=== PATIENT | male | born 1950 | race Caucasian/White ===

== ENCOUNTER 2017-01-22 20:53 | Emergency (ER) | payer MEDICARE ==
[~2017-01-22] VITALS: Ht 168.9 cm; Wt 83.3 kg
[~2017-01-22 20:53] MED LIST: ALLO100T PO; AMLO10TA4 PO; BACL10TA PO; CHOL20002 PO; LISI40TA4 PO; OXYC10TA51 PO; PREG200C PO; SIMV20TA6 PO; TIZA4TAB4 PO; TRAZ-170 PO
[2017-01-22 20:58] VITALS: Ht 168.9 cm; Wt 83.3 kg
--- OUTSIDE RECORDS SUMMARY | 2017-01-22 20:58 | XMS REPORT | Continuity of Care Document ---
Author Author [facility] Organization [facility] Address Unknown Phone Unavailable Support Name Relationship Address Phone ARMAND FORMAN DO Caregiver [address] [place] [address] Unavailable MAYRA MEJIA DO Caregiver [address] [place] [address] Unavailable MOHSEN MEI Next Of Kin [address] [phone] Insurance Providers Guarantor Vi Mejia Address [address] [place] [address] Email DENIED/11/24/16 Payer Medicare Policy Number [id number] Subscriber's Name Vi Mejia Relationship 18 Self Payer [facility] Policy Number [id number] Subscriber's Name MejiaVi Relationship 18 Self Group Number PLANF Chief Complaint and Reason for Visit Chief Complaint Abdominal Pain Reason for Visit Renal insufficiency Dehydration Problems Past Problems Medical Problem Onset Date Dehydration Unknown Renal insufficiency Unknown Medications Current Home Medications Medication Dose Units Route Directions Days Qty Instructions Start Date Allopurinol 100 Mg Tablet 300 Mg Oral Daily 01/13/16 Amlodipine Besylate (Norvasc) 10 Mg Tablet 10 Mg Oral Daily 01/12 Baclofen 10 Mg Tablet 10 Mg Oral Three Times A Day 01/13/16 Cholecalciferol (Vitamin D3) (Vitamin D) Unknown Strength Capsule 1 Cap Oral Daily 12/11/16 Lisinopril 40 Mg Tablet 40 Mg Oral Daily 01/13/16 Oxycodone Hcl 10 Mg Tablet 10 Mg Oral Four Times Daily as needed for Pain 12/11/16 Pregabalin (Lyrica) 200 Mg Capsule 200 Mg Oral Three Times A Day 12/11/16 Simvastatin 20 Mg Tablet 20 Mg Oral Daily 01/13/16 Tizanidine Hcl 4 Mg Tablet 4 Mg Oral Three Times A Day 12/11/16 Trazodone Hcl 50 Mg Tablet 50 Mg Oral Bedtime 12/11/16 Social History Social History Problem Response Recorded Date/Time Onset Date Status Hx Alcohol Use No 12/11/2016 4:49pm Not Applicable Not Applicable Has the pt used tobacco in the last 12 months No 11/24/2016 9:28am Not Applicable Not Applicable Query Response Start Date Stop Date Smoking Status Former smoker Hospital Discharge Instructions No hospital discharge instructions. Plan of Care Discharge Date 12/11/16 5:38pm Disposition 01 DISCHARGED HOME, SELF-CARE Condition at Discharge Improved Instructions/Education Provided Dehydration (ED) Prescriptions See Medication Section Referrals ARMAND FORMAN DO Order Date: 2 Days Address: [address] [address] Note: Care Plan and Goals Physician Care Plan Problem: Renal Insufficiency, Dehydration Goal: Follow up with primary care provider Instructions: Take medications and follow care plan as discussed/written Functional Status No functional status results. Allergies, Adverse Reactions, Alerts No known allergies. Immunizations Immunization Event Date Type Not Given Reason Dose Number Lot Number Rn Clinical Review VIS Given IGIV 10/07/16 Administered 1 IGIV 11/24/16 Administered 2 Query Response on File Recorded Date/Time Hx Influenza Vaccination Y JUL 2015 11/24/16 9:28am Hx Pneumococcal Vaccination Y jul 2015 11/24/16 9:28am Hx Influenza Vaccination Y JUL 2015 11/24/16 9:28am Influenza Vaccine Hx NOT RECIEVED 12/11/16 4:49pm Vital Signs Acute Vital Signs Vital Response Date/Time Temperature (Fahrenheit) 97.5 deg F (96.8 - 99.1) 12/11/2016 5:38pm Temperature (Calculated Celsius) 36.63733 degrees C (36.0 - 37.3) 12/11/2016 5:38pm Pulse Rate (adult) 56 bpm (60 - 100) 12/11/2016 5:38pm Respiratory Rate 16 breaths/min (10 - 20) 12/11/2016 5:38pm O2 Sat by Pulse Oximetry 97 % (90 - 100) 12/11/2016 5:38pm Oxygen Delivery Method Room Air 11/24/2016 9:31am Blood Pressure 124/58 mm Hg 12/11/2016 5:38pm Blood Pressure Source Automatic Cuff 11/24/2016 9:31am Blood Pressure / Blood Pressure Source Automatic Cuff 11/24/2016 9:31am Height (Feet) 5 feet 12/11/2016 2:30pm Height (Inches) 7.00 inches 12/11/2016 2:30pm Weight (Kilograms) 85.900 kg 12/11/2016 2:30pm Body Mass Index (BMI) 29.0 12/11/2016 2:30pm Results Laboratory Results Test Name Result Units Flags Reference Collection Date/Time Result Date/ Time Comments White Blood Count 7.4 T/MM3 4.5-11.0 12/11/2016 3:35pm 12/11/2016 4: 03pm Red Blood Count 4.82 M/MM3 4.50-5.90 12/11/2016 3:35pm 12/11/2016 4: 03pm Hemoglobin 13.2 GM/DL L 13.5-17.5 12/11/2016 3:35pm 12/11/2016 4:03pm Hematocrit 39.8 % L 41-53 12/11/2016 3:35pm 12/11/2016 4:03pm Mean Corpuscular Volume 82.6 UM3 80-100 12/11/2016 3:35pm 12/11/2016 4: 03pm Mean Corpuscular Hemoglobin 27.4 UUG 26-34 12/11/2016 3:35pm 2016 4:03pm Mean Corpuscular Hemoglobin Concent 33.2 GM/DL 31-37 12/11/2016 3:35pm 12/11/2016 4:03pm RDW Standard Deviation 38.9 FL 36.9-50.2 12/11/2016 3:35pm 12/11/2016 4 :03pm Platelet Count 224 T/MM3 130-400 12/11/2016 3:35pm 12/11/2016 4:03pm Mean Platelet Volume 10.6 UM3 9.4-12.4 12/11/2016 3:35pm 12/11/2016 4: 03pm Neutrophils % (Manual) 56.0 % 33-66 12/11/2016 3:35pm 12/11/2016 4: 27pm Band Neutrophils % 1.0 % 0-6 12/11/2016 3:35pm 12/11/2016 4:27pm Lymphocytes % (Manual) 34.0 % 23-45 12/11/2016 3:35pm 12/11/2016 4: 27pm Monocytes % (Manual) 7.0 % 0-9.0 12/11/2016 3:35pm 12/11/2016 4:27pm Eosinophils % (Manual) 1.0 % 0-4 12/11/2016 3:35pm 12/11/2016 4:27pm Metamyelocytes % 1.0 % H 0-0 12/11/2016 3:35pm 12/11/2016 4:27pm Band Neutrophils # 0.1 T/MM3 12/11/2016 3:35pm 12/11/2016 4:27pm Absolute Neutrophils (Manual) 4.1 T/MM3 1.8-7.7 12/11/2016 3:35pm 12/11 4:27pm Lymphocytes # (Manual) 2.5 T/MM3 1-4.8 12/11/2016 3:35pm 12/11/2016 4: 27pm Monocytes # (Manual) 0.5 T/MM3 0-0.8 12/11/2016 3:35pm 12/11/2016 4: 27pm Eosinophils # (Manual) 0.1 T/MM3 0-0.5 12/11/2016 3:35pm 12/11/2016 4: 27pm Metamyelocytes # 0.1 T/MM3 12/11/2016 3:35pm 12/11/2016 4:27pm Red Cell Morphology Comment NORMAL 12/11/2016 3:35pm 12/11/2016 4: 27pm Icterus Index < 2 0-7 12/11/2016 3:35pm 12/11/2016 3:57pm Chemistry Specimen Hemolysis 64 H 0-25 12/11/2016 3:35pm 12/11/2016 3: 57pm 26-70: Specimen Exhibited Slight Hemolysis - can falsely elevate K (Potassium) and Urine Protein. Turbidity < 20 0-20 12/11/2016 3:35pm 12/11/2016 3:57pm Sodium Level 125 MEQ/L L 134-144 12/11/2016 3:35pm 12/11/2016 3:57pm Potassium Level 5.6 MEQ/L H 3.6-5 12/11/2016 3:35pm 12/11/2016 3:57pm Chloride Level 90 MEQ/L L 98-107 12/11/2016 3:35pm 12/11/2016 3:57pm Carbon Dioxide Level 26 MEQ/L 22-30 12/11/2016 3:35pm 12/11/2016 3: 57pm Anion Gap 9 MEQ/L 5-15 12/11/2016 3:35pm 12/11/2016 3:57pm Blood Urea Nitrogen 25.0 MG/DL H 9-20 12/11/2016 3:35pm 12/11/2016 3: 57pm Creatinine 2.1 MG/DL H 0.8-1.5 12/11/2016 3:35pm 12/11/2016 3:57pm BUN/Creatinine Ratio 12 RATIO 6-26 12/11/2016 3:35pm 12/11/2016 3:57pm Glomerular Filtration Rate Calc 32 12/11/2016 3:35pm 12/11/2016 3: 57pm Glucose Level 86 MG/DL 75-110 12/11/2016 3:35pm 12/11/2016 3:57pm Calculated Osmolality 245 MOSM/KG L 261-280 12/11/2016 3:35pm 2016 3:57pm Calcium Level 10.2 MG/DL 8.4-10.2 12/11/2016 3:35pm 12/11/2016 3:57pm Total Bilirubin 0.60 MG/DL 0.20-1.30 12/11/2016 3:35pm 12/11/2016 3: 57pm Alkaline Phosphatase 90 U/L 38-126 12/11/2016 3:35pm 12/11/2016 3:57pm Total Protein 7.7 G/DL 6.3-8.2 12/11/2016 3:35pm 12/11/2016 3:57pm Albumin 4.4 G/DL 3.5-5.0 12/11/2016 3:35pm 12/11/2016 3:57pm Globulin 3.3 G/DL 2.4-3.6 12/11/2016 3:35pm 12/11/2016 3:57pm Albumin/Globulin Ratio 1.3 RATIO 1.1-2.2 12/11/2016 3:35pm 12/11/2016 3 :57pm Aspartate Amino Transf (AST/SGOT) 22 U/L 17-59 12/11/2016 3:35pm 2016 3:57pm Alanine Aminotransferase (ALT/SGPT) 20 U/L L 21-72 12/11/2016 3:35pm 08/2017 3:57pm Lipase 88 U/L 23-300 12/11/2016 3:35pm 12/11/2016 4:29pm Urine Collection Type CLEANCATCH-MIDSTREAM 12/11/2016 4:45pm 2016 4:55pm Urine Color YELLOW YELLOW 12/11/2016 4:45pm 12/11/2016 4:55pm Urine Turbidity CLEAR CLEAR 12/11/2016 4:45pm 12/11/2016 4:55pm Urine Specific [place] <=1.005 L 1.015-1.025 12/11/2016 4:45pm 2016 4:55pm Urine pH 6.0 5.0-8.0 12/11/2016 4:45pm 12/11/2016 4:55pm Urine Leukocyte Esterase NEGATIVE NEGATIVE 12/11/2016 4:45pm 2016 4:55pm Urine Nitrite NEGATIVE NEGATIVE 12/11/2016 4:45pm 12/11/2016 4:55pm Urine Protein NEGATIVE NEGATIVE 12/11/2016 4:45pm 12/11/2016 4:55pm Urine Glucose (UA) NEGATIVE NEGATIVE 12/11/2016 4:45pm 12/11/2016 4: 55pm Urine Ketones NEGATIVE NEGATIVE 12/11/2016 4:45pm 12/11/2016 4:55pm Urine Urobilinogen 0.2 EU/DL NORMAL 12/11/2016 4:45pm 12/11/2016 4: 55pm Urine Bilirubin NEGATIVE NEGATIVE 12/11/2016 4:45pm 12/11/2016 4: 55pm Urine Blood NEGATIVE NEGATIVE 12/11/2016 4:45pm 12/11/2016 4:55pm Urinalysis Comment MICROSCOPIC NOT IND. 12/11/2016 4:45pm 2016 4:55pm Name: VI MEJIA Unit #: [id number] : [id number] Sex: M Admit Date: Loc / Svc: ED Discharge Date: 12/11/16 DIAGNOSTIC IMAGING REPORT Report #: [id number] [facility] ROBERTA Fabian Indication: ITS.REASON: constipation PROCEDURE: CT ABD/PELVIS W/O CONTRAST: Encounter: Initial Comparison: None Technique: Axial CT images were performed through the abdomen and pelvis without intravenous contrast. Coronal and sagittal two-dimensional reformats. Automated Exposure Control and Iterative Reconstruction dose reducing techniques were utilized. Findings: Mild scarring in the right lung base. The unenhanced contours of the liver are unremarkable. The gallbladder is normal. Muscle hiatal hernia. Granulomas in the spleen. The pancreas is grossly normal. Unenhanced adrenal glands and kidneys appear normal. No abdominal or pelvic lymphadenopathy. Bladder is normal. Prostate and rectum are within normal limits. No free fluid. No significantly increased colonic stool burden. No bowel obstruction. 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 Small appendicoliths within an otherwise normal-appearing appendix. Impression: No acute disease process seen. There is a preliminary report by [employer]. . Procedures Procedure Status Date Provider(s) Ther/proph/diag iv inf init Completed 10/07/16 Ther/proph/diag iv inf addon Completed 10/07/16 Ther/proph/diag iv inf addon Completed 10/07/16 Completed 10/07/16 Ct abd & pelvis w/o contrast Completed 12/11/16 Comprehen metabolic panel Completed 12/11/16 Urinalysis auto w/o scope Completed 12/11/16 Assay of lipase Completed 12/11/16 Complete cbc w/auto diff wbc Completed 12/11/16 Electrocardiogram tracing Completed 12/11/16 Hydration iv infusion init Completed 12/11/16 Emergency dept visit Completed 12/11/16 Encounters Encounter Location Arrival/Admit Date Discharge/Depart Date Attending Provider Departed Emergency Room [facility] 12/11/16 2:26pm 12/11/16 5: 38pm MAYRA MEJIA DO Discharged [facility] 11/24/16 8:41am 01/08/17 11:59pm YUSEF SCHULER MD Discharged [facility] 10/07/16 8:24am 10/30/16 11:11pm YUSEF SCHULER MD Recent Diagnosis
--- OUTSIDE RECORDS SUMMARY | 2017-01-22 20:58 | XMS REPORT | Continuity of Care Document ---
Author Author [facility] Organization [facility] Address Unknown Phone Unavailable Support Name Relationship Address Phone ARMAND FORMAN DO Caregiver [address] [place] [address] Unavailable MAYRA MEJIA DO Caregiver [address] [place] [address] Unavailable MOHSEN MEI Next Of Kin [address] [phone] Insurance Providers Guarantor Vi Mejia Address [address] [place] [address] Email DENIED 16 Payer Medicare Policy Number [id number] Subscriber's Name Vi Mejia Relationship 18 Self Payer [facility] Policy Number [id number] Subscriber's Name Vi Mejia Relationship 18 Self Group Number PLANF Chief [...] FORMAN DO Order Date: 2 Days Address: [address] [address] Note: Care Plan and Goals Physician Care Plan Problem: Renal Insufficiency, Dehydration Goal: Follow up with primary care provider Instructions: Take medications and follow care plan as discussed/written Functional Status No functional status results. Allergies, Adverse Reactions, Alerts No known allergies. Immunizations Immunization Event Date Type Not Given Reason Dose Number Lot Number [employer] VIS Given IGIV 05/25/16 Administered 1 IGIV 07/06/16 Administered 2 IGIV 08/17/16 Administered 3 IGIV 10/07/16 Administered 4 IGIV 11/24/16 Administered 5 Query Response on File Recorded Date/Time Hx Influenza Vaccination Y JUL 2015 11/24/16 9:28am Hx Pneumococcal Vaccination Y jul 2015 11/24/16 9:28am Hx Influenza Vaccination Y JUL 2015 11/24/16 9:28am Influenza Vaccine Hx NOT RECIEVED 12/11/16 4:49pm Vital Signs Acute Vital Signs Vital Response Date/Time Temperature (Fahrenheit) 97.5 deg F (96.8 - 99.1) 12/11/2016 5:38pm Temperature (Calculated Celsius) 36.36572 degrees C (36.0 - 37.3) 12/11/2016 5:38pm [...] CLEAR 12/11/2016 4:45pm 12/11/2016 4:55pm Urine Specific [place] <=1.005 L 1.015-1.025 12/11/2016 4:45pm 2016 4:55pm [...] MICROSCOPIC NOT IND. 12/11/2016 4:45pm 2016 4:55pm Procedures Procedure Status Date Provider(s) Ther/proph/diag iv inf init Completed 05/25/16 Ther/proph/diag iv inf addon Completed 05/25/16 Ther/proph/diag iv inf addon Completed 05/25/16 Completed 05/25/16 Ther/proph/diag iv inf init Completed 05/25/16 Ther/proph/diag iv inf addon Completed 05/25/16 Completed 05/25/16 Ther/proph/diag iv inf init Completed 05/25/16 Ther/proph/diag iv inf addon Completed 05/25/16 Completed 05/25/16 Ther/proph/diag iv inf init Completed 10/07/16 Ther/proph/diag iv inf addon Completed 10/07/16 Ther/proph/diag iv inf addon Completed 10/07/16 Completed 10/07/16 Encounters Encounter Location Arrival/Admit Date Discharge/Depart Date Attending Provider Departed Emergency Room [facility] 12/11/16 2:26pm 12/11/16 5: 38pm MAYRA MEJIA DO Registered [facility] 11/24/16 8:41am YUSEF SCHULER MD Discharged [facility] 10/07/16 8:24am 10/30/16 11:11pm YUSEF SCHULER MD Discharged [facility] 05/25/16 8:35am 10/01/16 11:59pm YUSEF SCHULER MD Recent Diagnosis
--- NOTE | 2017-01-22 21:09 | ERPDOC ---
Departure Disposition Decision Date: Jan 22, 2017 Disposition Decision Time: 21:39 Disposition: 01 DISCHARGED HOME, SELF-CARE Impression Impression Impression: Primary Impression: Concern about heart disease without diagnosis Severity: Moderate Condition: Stable Seen By: Physician only Referrals: ARMAND CALABRESE DO (Family) Follow-up with Dr. Calabrese for reevaluation Patient Instructions: How to Take a Blood Pressure (ED) Problems/Meds/Labs Reviewed?: Yes Medications reviewed and manag: Yes Follow up care ordered?: Yes Mental Status: Alert, Oriented HPI - General Medical General Chief Complaint: General Stated Complaint: BLOOD PRESSURE PROBLEM Time Seen by Provider: 21:09 Source: patient Exam Limitations: no limitations HPI - General Medical Initial Comments Patient is a 66-year-old male stated complaint is "blood pressure problems". Patient brought a new blood pressure machine today, wrist model. Patient is checked his blood pressure several times getting numbers such as 90/40. Patient completely asymptomatic no dizziness no blurry vision no shortness of breath or weakness. Patient decided he should be checked out in the emergency department 1st blood pressure here 125/63. Allergies: Coded Allergies: No Known Allergies (Unverified , 01/22/17) Past History Past Medical History Pt denies signifigant PMH Surgical History Denies Surgeries Vaccines Hx Influenza Vaccination: Yes (JUL 2015) Hx Pneumococcal Vaccination: Yes (jul 2015) Social History Substance Use Type: does not use Alcohol Intake: none Review of Systems Constitutional Constitutional: DENIES: appetite decrease, chills, dizziness, fever, weakness Eyes Vision: DENIES: double vision, loss of visual tse ENMT Sinuses: DENIES: congestion, rhinorrhea Mouth/Throat: DENIES: scratchy throat, sore throat Cardiovascular Cardiac: DENIES: chest pain, dyspnea on exertion Rhythm/Rate: DENIES: palpitations, tachycardia Pulmonary Respiratory: DENIES: cough, dyspnea, sputum, tachypnea GI Upper Abdomen: DENIES: nausea, pain, vomiting Lower Abdomen: DENIES: constipation, diarrhea, pain General: DENIES: frequency, urgency Musculoskeletal General: DENIES: cramps, pain, weakness Integumentary Skin: DENIES: color change, itching, rash Endocrine Endocrine: DENIES: heat/cold intolerance Hematologic/Lymphatic Hematologic/Lymphatic: DENIES: anemia Physical Exam General General Nourishment: well nourished, well developed General Body Habitus: well groomed Vitals and Pain First Documented Vital Signs Date Time Temp Pulse Resp B/P Pulse Ox O2 Delivery O2 Flow Rate FiO2 01/22/17 20:58 97.3 56 18 123/63 94 Room Air Weight: Kilograms: Height (feet): 5 Height (inches): 6.50 Triage Pain Scale: RN VS reviewed by Provider: Yes Eyes (brief) Eyes Brief: found: EOMI Respiratory (brief) Respiratory: FOUND: clear all tse, equal bilaterally, NOT FOUND: rales, wheezes Cardiovascular (brief) Cardiac: FOUND: regular rate, regular rhythm Capillary Refill: <2 sec Integumentary (brief) Integumentary Brief: FOUND: dry, pink, warm Neurologic (brief) Neurological Brief: FOUND: CN w/o gross def to obs, motor-no gross deficits, sensory-no gross deficits Psychiatric (brief) Psychiatric Brief: FOUND: alert, oriented Differential Diagnoses Considering: Medication Effect, Other (hypertension, hypotension, mechanical failure of machine) Progress Results/Orders Orders Procedure Category Date Status Time Orthostatic Bp/Pulse EDM 01/22/17 Transmitted 21:09 Progress Progress Patient's blood pressure normal in the emergency department, did do orthostatics , patient is not orthostatic. Suspect patient is not using machine properly, discharge patient home SHANITA MILLER MD Jan 22, 2017 21:09
[2017-01-22 21:50] VITALS: BP 129/67; PULSE 62; RESP 18; TEMP 97.3; O2SAT 94
== END 2017-01-22 21:50 | disposition home or self-care (01) ==
LOC: ED 20:53
DX: Z71.1 Person with feared health complaint in whom no diagnosis is made (principal)